=== PATIENT | female | born 1955 | race Caucasian/White ===

== ENCOUNTER 2017-03-04 08:31 | Emergency (ER) | payer OTHER ==
--- NOTE | 2017-03-04 08:41 | EDPHY ---
H & P Time Seen by Provider: 03/04/17 08:39 HPI/ROS: Chief Complaint: Altered mental status HPI: 61-year-old woman with a history of end-stage liver disease presenting from her care facility with altered mental status this morning. Patient has only been at this facility for several days. She is normally on lactulose. Unclear whether she has been getting her usual dosages. No nausea or vomiting. No fevers or chills. Patient is awake and alert but confused. Not able to provide any significant history. ROS: 10 point Review of Systems is negative except as noted in the HPI. PMH: End-stage liver disease Social History: No smoking, no alcohol, no recreational drug use Family History: non-contributory Physical Exam: Gen: Awake, Alert, No Distress, jaundiced in appearance HEENT: Nose: no rhinorrhea Eyes: PERRLA, EOMI, marked scleral icterus Mouth: Moist mucosa Neck: Supple, no JVD Chest: nontender, lungs clear to auscultation Heart: S1, S2 normal, no murmur Abd: Obese, distended, Soft, non-tender, no guarding Back: no CVA tenderness, no midline tenderness Ext: no edema, non-tender Skin: no rash Neuro: CN II-XII intact, Sensation grossly intact, Strength 5/5 in bilateral upper and lower extremities Constitutional: Initial Vital Signs Temperature (C) 36.8 C 03/04/17 08:48 Heart Rate 92 03/04/17 08:48 Respiratory Rate 18 03/04/17 08:48 Blood Pressure 100/60 03/04/17 08:48 O2 Sat (%) 97 03/04/17 08:48 O2 Delivery Mode Room Air Allergies/Adverse Reactions: amoxicillin Allergy (Verified 03/04/17 08:54) ibuprofen Allergy (Verified 03/04/17 08:54) Penicillins Allergy (Verified 03/04/17 08:54) Home Medications: Medication Instructions Recorded LACTULOSE 03/04/17 LACTULOSE 03/04/17 Lasix 03/04/17 Lidocaine 5% [Lidocaine 5% Oint] 03/04/17 Multivit Infusn,Adult 1,Vit K 03/04/17 Omeprazole 03/04/17 Sertraline HCl 03/04/17 Spironolactone 03/04/17 Tylenol 03/04/17 VITAMIN D 03/04/17 Xifaxan 03/04/17 traZODone 03/04/17 Medical Decision Making - Diagnostics Imaging Results: Imaging Impressions Chest X-Ray 03/04/17 08:40 Impression: Poor inspiration. Suspect early CHF. A repeat PA upright chest x- ray in full inspiration would be helpful, to better evaluate the cardiothoracic equilibrium. ED Course/Re-evaluation: Patient has altered mental status with a history of liver disease. She is not febrile. She has not have a white count. There is no focal evidence of infection at this time. Ammonia level is 58. Symptoms are consistent with hepatic encephalopathy. She is a [facility] patient. I have paged the [facility] to arrange for admission, likely transfer. Case discussed with Vitor Davidson, hospitalist at [facility]. He he will accept the patient in transfer to [facility] by Dr. Leonardo Coreas. - Data Points Laboratory Results: Laboratory Results 03/04/17 08:40 03/04/17 08:40 03/04/17 03/04/17 03/04/17 08:40 08:40 08:40 WBC RBC Hgb Hct MCV MCH MCHC RDW Plt Count MPV Neut % (Auto) Lymph % (Auto) [place] % (Auto) Eos % (Auto) Baso % (Auto) Nucleat RBC Rel Count Absolute Neuts (auto) Absolute Lymphs (auto) Absolute Monos (auto) Absolute Eos (auto) Absolute Basos (auto) Absolute Nucleated RBC Immature Gran % Immature Gran # Platelet Estimate Polychromasia Acanthocytes (Spur) PT 25.9 SEC H SEC (12.0-15.0) INR 2.34 H (0.83-1.16) APTT 49.7 SEC H SEC (23.0-38.0) Sodium 128 mEq/L L mEq/L (134-144) Potassium 5.1 mEq/L mEq/L (3.5-5.2) Chloride 96 mEq/L L mEq/L (97-110) Carbon Dioxide 28 mEq/l mEq/l (22-31) Anion Gap 4 mEq/L L mEq/L (8-16) BUN 19 mg/dL mg/dL (7-23) Creatinine 0.7 mg/dL mg/dL (0.6-1.0) Estimated GFR > 60 Glucose 83 mg/dL mg/dL (70-100) Calcium 8.2 mg/dL L mg/dL (8.5-10.4) Total Bilirubin 8.1 mg/dL H mg/dL (0.1-1.4) Conjugated Bilirubin 4.4 mg/dL H mg/dL (0.0-0.5) Unconjugated Bilirubin 3.7 mg/dL H mg/dL (0.0-1.1) AST 71 IU/L H IU/L (14-46) ALT 58 IU/L H IU/L (9-52) Alkaline Phosphatase 197 IU/L H IU/L (38-126) Ammonia 58.0 uMOL/L H uMOL/L (9.0-30.0) Total Protein 5.9 g/dL L g/dL (6.3-8.2) Albumin 2.4 g/dL L g/dL (3.5-5.0) Lipase 202 IU/L IU/L (23-300) 03/04/17 08:40 WBC 8.49 10^3/uL 10^3/uL (3.80-9.50) RBC 3.64 10^6/uL L 10^6/uL (4.18-5.33) Hgb 12.0 g/dL L g/dL (12.6-16.3) Hct 33.4 % L % (38.0-47.0) MCV 91.8 fL fL (81.5-99.8) MCH 33.0 pg pg (27.9-34.1) MCHC 35.9 g/dL g/dL (32.4-36.7) RDW 20.3 % H % (11.5-15.2) Plt Count 54 10^3/uL L 10^3/uL (150-400) MPV TNP Neut % (Auto) 75.1 % H % (39.3-74.2) Lymph % (Auto) 10.6 % L % (15.0-45.0) [place] % (Auto) 11.9 % % (4.5-13.0) Eos % (Auto) 0.4 % L % (0.6-7.6) Baso % (Auto) 0.7 % % (0.3-1.7) Nucleat RBC Rel Count 0.0 % % (0.0-0.2) Absolute Neuts (auto) 6.38 10^3/uL 10^3/uL (1.70-6.50) Absolute Lymphs (auto) 0.90 10^3/uL L 10^3/uL (1.00-3.00) Absolute Monos (auto) 1.01 10^3/uL H 10^3/uL (0.30-0.80) Absolute Eos (auto) 0.03 10^3/uL 10^3/uL (0.03-0.40) Absolute Basos (auto) 0.06 10^3/uL 10^3/uL (0.02-0.10) Absolute Nucleated RBC 0.00 10^3/uL 10^3/uL (0-0.01) Immature Gran % 1.3 % H % (0.0-1.1) Immature Gran # 0.11 10^3/uL H 10^3/uL (0.00-0.10) Platelet Estimate DECREASED L (ADEQ) Polychromasia 1+ H Acanthocytes (Spur) 1+ H PT INR APTT Sodium Potassium Chloride Carbon Dioxide Anion Gap BUN Creatinine Estimated GFR Glucose Calcium Total Bilirubin Conjugated Bilirubin Unconjugated Bilirubin AST ALT Alkaline Phosphatase Ammonia Total Protein Albumin Lipase Departure - Departure Condition: Fair Referrals: Patient,NotPresent [Unknown] - As per Instructions
[2017-03-04 08:53] VITALS: RESP 18
[2017-03-04 08:58] LABS: % IMMATURE GRANULYOCYTES 1.3 % (0.0-1.1); ABSOLUTE IMMATURE GRANULOCYTES 0.11 10^3/uL (0.00-0.10); ADD DIFF? NO; ADD MORPH? YES; ADD SCAN? NO; ATYPICAL LYMPHOCYTE FLAG 0 (0-99); FRAGMENT RBC FLAG 20 (0-99); HEMATOCRIT 33.4 % (38.0-47.0); LEFT SHIFT FLG 20 (0-99); LIPEMIA HEMOLYSIS FLAG 90 (0-99); MEAN CELL HEMOGLOBIN CONCENTR. 35.9 g/dL (32.4-36.7); MEAN CELL VOLUME 91.8 fL (81.5-99.8); PLATELET CLUMPS FLAG 10 (0-99); PLATELET COUNT 54 10^3/uL (150-400); RED BLOOD CELL COUNT 3.64 10^6/uL (4.18-5.33)
[2017-03-04 09:00] LABS: RED CELL DISTRIBUTION WIDTH 20.3 % (11.5-15.2)
[2017-03-04 09:09] LABS: INR 2.34 (0.83-1.16); PROTIME(PATIENT) 25.9 SEC (12.0-15.0)
[2017-03-04 09:10] LABS: APTT 49.7 SEC (23.0-38.0)
[2017-03-04 09:21] LABS: ALANINE AMINOTRANSFERASE 58 IU/L (9-52); ALBUMIN 2.4 g/dL (3.5-5.0); ALKALINE PHOSPHATASE 197 IU/L (38-126); ANION GAP 4 mEq/L (8-16); ASPARTATE AMINOTRANSFERASE 71 IU/L (14-46); BILIRUBIN,TOTAL 8.1 mg/dL (0.1-1.4); CALCIUM 8.2 mg/dL (8.5-10.4); CARBON DIOXIDE 28 mEq/l (22-31); CHLORIDE 96 mEq/L (97-110); CREATININE 0.7 mg/dL (0.6-1.0); GLOMERULAR FILTRATION RATE > 60; GLUCOSE 83 mg/dL (70-100); POTASSIUM 5.1 mEq/L (3.5-5.2); SODIUM 128 mEq/L (134-144); TOTAL PROTEIN 5.9 g/dL (6.3-8.2)
[2017-03-04 09:36] VITALS: PULSE 90; O2SAT 96
[2017-03-04 09:38] LABS: BILIRUBIN-CONJUGATED 4.4 mg/dL (0.0-0.5); BILIRUBIN-UNCONJUGATED 3.7 mg/dL (0.0-1.1)
[2017-03-04 10:00] LABS: PLATELET ESTIMATE DECREASED (ADEQ)
[2017-03-04 10:02] LABS: ACANTHOCYTES 1+; POLYCHROMASIA 1+
[2017-03-04 11:33] VITALS: BP 117/62; TEMP 98.1
== END 2017-03-04 11:31 | disposition short-term general hospital (02) ==
DX: K72.90 Hepatic failure, unspecified without coma (principal)